=== PATIENT | female | born 1990 | race American Indian/Alaskan Native ===

== ENCOUNTER 2021-06-19 01:27 | Emergency (ER) | payer OTHER ==
[2021-06-19] MEDS ORDERED: IBUPROFEN 800 MG TAB ONE (02:33)
[2021-06-19] MEDS ORDERED: predniSONE 20 MG TAB ONE (02:33)
[2021-06-19] MEDS ORDERED: AMOXICILLIN/K CLAV 875/125MG TAB ONE (02:33)
== END 2021-06-19 02:42 | disposition home or self-care (01) ==
LOC: ED 01:27
DX: Z00.00 Encounter for general adult medical examination without abnormal findings (principal); Z53.21 Procedure and treatment not carried out due to patient leaving prior to being seen by health care provider
CPT/HCPCS: J7512